=== PATIENT | female | born 1995 | race Asian ===

== ENCOUNTER 2023-01-28 12:15 | Outpatient (CLI) | payer OTHER | END 2023-01-28 12:30 | disposition home or self-care (01) | LOC: LAB.N 12:15 | PROVIDERS: ATTEND Family Medicine | DX: N94.6 Dysmenorrhea, unspecified (principal); R10.2 Pelvic and perineal pain | CPT/HCPCS: 36415; 84702 ==

== ENCOUNTER 2023-01-30 11:02 | Outpatient (CLI) | payer OTHER | END 2023-01-30 11:03 | disposition home or self-care (01) | LOC: LAB.N 11:02 | PROVIDERS: ATTEND Physician Assistant Medical | DX: R10.2 Pelvic and perineal pain (principal) | CPT/HCPCS: 36415; 84702 ==